=== PATIENT | male | born 1995 | race African-American/Black ===

== ENCOUNTER 2017-03-17 19:53 | Emergency (ER) | payer MEDICAID ==
[~2017-03-17] VITALS: Ht 193 cm; Wt 63.0 kg
[2017-03-17] MEDS ORDERED: LIDOCAINE 1%, 20ML SQ ONE (20:00)
[2017-03-17] MEDS ORDERED: DIPH,PERTUSS(ACELL),TET VAC/PF 0.5 ML IM-VACC ONE ×2 (20:00→20:30)
[2017-03-17] MEDS ORDERED: PLEASE ENTER HEIGHT AND WEIGHT MC SCH (20:30)
[2017-03-17] MEDS ORDERED: LIDOCAINE 1%, 20ML ONE (20:30)
[2017-03-17] MEDS ORDERED: BACITRACIN ZINC OINT 500U/GM, 0.9 GM ONE (20:40)
[2017-03-17 21:46] VITALS: BP 155/91
== END 2017-03-17 21:48 | disposition home or self-care (01) ==
LOC: ED 21:39
DX: S01.412A Laceration without foreign body of left cheek and temporomandibular area, initial encounter (principal); S02.32XA Fracture of orbital floor, left side, initial encounter for closed fracture; S02.31XA Fracture of orbital floor, right side, initial encounter for closed fracture; S02.19XA Other fracture of base of skull, initial encounter for closed fracture; S09.90XA Unspecified injury of head, initial encounter; Z23 Encounter for immunization; W18.39XA Other fall on same level, initial encounter; Y93.89 Activity, other specified; Y99.8 Other external cause status; Y92.89 Other specified places as the place of occurrence of the external cause; Y93.51 Activity, roller skating (inline) and skateboarding
CPT/HCPCS: 12011; 70450; 70486; 72125; 90471; 90715

== ENCOUNTER 2017-03-25 16:27 | Emergency (ER) | payer MEDICAID ==
[~2017-03-25] VITALS: Ht 190.5 cm; Wt 67.9 kg
[2017-03-25 16:38] VITALS: BP 128/80
== END 2017-03-25 17:04 | disposition home or self-care (01) ==
LOC: ED 16:45
DX: S01.81XD Laceration without foreign body of other part of head, subsequent encounter (principal)
CPT/HCPCS: 99281

== ENCOUNTER 2017-04-10 19:39 | Inpatient (IN) | payer MEDICAID ==
[~2017-04-10] VITALS: Ht 190.5 cm; Wt 70.1 kg
[2017-04-10] MEDS ORDERED: SODIUM CHLORIDE 0.9% 1,000ML IVBOLUS ONE ×2 (20:30→22:00)
[2017-04-10] MEDS ORDERED: SODIUM CHLORIDE FLUSH 10ML SYR IVF ONE (20:30)
[2017-04-10] MEDS ORDERED: AMPICILLIN/SULBACTAM 3 GM in SODIUM CHLORIDE 0.9% 100 ML IVPB ONE (20:30)
[2017-04-10 20:59] LABS: BLOOD UREA NITROGEN 14 mg/dL (7-18)
[2017-04-10] MEDS ORDERED: KETOROLAC 30 MG/1 ML ONE (21:55)
[2017-04-10] MEDS ORDERED: KETOROLAC 30 MG/1 ML IVPush ONE (22:00)
[2017-04-10] MEDS ORDERED: VANCOMYCIN PER PHARMACY MC PRN (23:00)
[2017-04-10] MEDS ORDERED: VANCOMYCIN 1,300 MG in SODIUM CHLORIDE 0.9% 250 ML IV ONE (23:30)
[2017-04-11 01:00] VITALS: BP 104/55
[2017-04-11] MEDS: ENOXAPARIN 40 MG/0.4 ML SQ SCH (01:30)
[2017-04-11] MEDS ORDERED: BISACODYL 10 MG SUPP PR PRN (01:30)
[2017-04-11] MEDS ORDERED: DOCUSATE 100 MG CAPSULE PO PRN (01:30)
[2017-04-11] MEDS ORDERED: POLYETHYLENE GLYCOL 17 GM PACKET PO PRN (01:30)
[2017-04-11] MEDS ORDERED: LABETALOL 5MG/ML, 20ML IVPush PRN (01:30)
[2017-04-11] MEDS: SODIUM CHLORIDE 0.9% 1,000 ML IV SCH ×4 (03:24→22:00)
[2017-04-11] MEDS: AMPICILLIN/SULBACTAM 3 GM in SODIUM CHLORIDE 0.9% 100 ML IV SCH ×4 (03:24→19:50)
[2017-04-11 06:31] VITALS: BP 123/68
[2017-04-11] MEDS: ACETAMINOPHEN 325 MG TABLET PO PRN ×3 (09:20→19:50)
[2017-04-11 14:29] VITALS: BP 120/61
[2017-04-11 19:39] VITALS: BP 121/73
[2017-04-12] MEDS: ENOXAPARIN 40 MG/0.4 ML SQ SCH (01:30)
[2017-04-12] MEDS: AMPICILLIN/SULBACTAM 3 GM in SODIUM CHLORIDE 0.9% 100 ML IV SCH ×4 (02:18→19:49)
[2017-04-12 02:47] VITALS: BP 114/69
[2017-04-12] MEDS ORDERED: CALCIUM CARBONATE 500 MG TAB.CHEW PO PRN (03:00)
[2017-04-12] MEDS: SODIUM CHLORIDE 0.9% 1,000 ML IV SCH ×2 (05:10→11:12)
[2017-04-12 07:40] LABS: BLOOD UREA NITROGEN 8 mg/dL (7-18)
[2017-04-12 08:34] VITALS: BP 130/74
[2017-04-12] MEDS ORDERED: VANCOMYCIN PER PHARMACY MC PRN (11:00)
[2017-04-12] MEDS ORDERED: PHARMACOKINETIC MONITORING MC PRN (11:30)
[2017-04-12] MEDS ORDERED: PHARMACOKINETIC CONSULTATION MC ONE (11:30)
[2017-04-12] MEDS: VANCOMYCIN 1,400 MG in SODIUM CHLORIDE 0.9% 250 ML IV SCH ×2 (11:49→23:24)
[2017-04-12] MEDS ORDERED: MORPHINE SULFATE 4 MG/ML, 1ML IVPush PRN (12:30)
[2017-04-12] MEDS ORDERED: HYDROcodone/APAP 5/325 TABLET PO PRN (12:30)
[2017-04-12 14:06] VITALS: BP 115/73
[2017-04-12 18:30] VITALS: BP 116/66
[2017-04-13 01:07] VITALS: BP 100/66
[2017-04-13] MEDS: ENOXAPARIN 40 MG/0.4 ML SQ SCH (01:30)
[2017-04-13] MEDS: AMPICILLIN/SULBACTAM 3 GM in SODIUM CHLORIDE 0.9% 100 ML IV SCH ×4 (02:05→20:25)
[2017-04-13] MEDS: SODIUM CHLORIDE 0.9% 1,000 ML IV SCH ×3 (02:06→23:59)
[2017-04-13 07:19] VITALS: BP 122/78
[2017-04-13] MEDS: VANCOMYCIN 1,400 MG in SODIUM CHLORIDE 0.9% 250 ML IV SCH ×2 (11:31→23:30)
[2017-04-13 15:10] VITALS: BP 101/64
[2017-04-13 18:50] VITALS: BP 114/80
[2017-04-14] MEDS: ENOXAPARIN 40 MG/0.4 ML SQ SCH (01:30)
[2017-04-14] MEDS: AMPICILLIN/SULBACTAM 3 GM in SODIUM CHLORIDE 0.9% 100 ML IV SCH ×4 (02:21→21:03)
[2017-04-14 03:23] VITALS: BP 111/61
[2017-04-14 08:30] VITALS: BP 121/77
[2017-04-14] MEDS: SULFAMETH./TRIMETHOPRIM DS 800MG/160MG TABLET PO SCH ×2 (10:43→21:03)
[2017-04-14] MEDS: SODIUM CHLORIDE 0.9% 1,000 ML IV SCH (10:44)
[2017-04-14 15:28] VITALS: BP 109/68
[2017-04-14 19:25] VITALS: BP 144/67
[2017-04-14] MEDS ORDERED: HYDROcodone/APAP 5/325 TABLET PO PRN (21:00)
[2017-04-14] MEDS ORDERED: BISACODYL 10 MG SUPP PR PRN (21:00)
[2017-04-15] MEDS: ENOXAPARIN 40 MG/0.4 ML SQ SCH (01:30)
[2017-04-15 02:03] VITALS: BP 121/61
[2017-04-15] MEDS: SODIUM CHLORIDE 0.9% 1,000 ML IV SCH (02:50)
[2017-04-15] MEDS: AMPICILLIN/SULBACTAM 3 GM in SODIUM CHLORIDE 0.9% 100 ML IV SCH ×2 (02:51→08:20)
[2017-04-15 05:56] LABS: DAU SCREEN DISCLAIMER
[2017-04-15] MEDS: SULFAMETH./TRIMETHOPRIM DS 800MG/160MG TABLET PO SCH (08:24)
[2017-04-15] MEDS ORDERED: AMOX1TAB12 PO (08:44)
[2017-04-15] MEDS ORDERED: ACID1TAB3 PO (08:44)
[2017-04-15] MEDS ORDERED: SULF1TAB3 PO (08:44)
[2017-04-15 08:59] VITALS: BP 141/74
[2017-04-15] MEDS ORDERED: AMOXICILLIN/CLAV 875-125MG TABLET PO SCH (10:00)
== END 2017-04-15 14:39 | disposition home or self-care (01) | DRG 872 ==
LOC: ED 22:45 → EDIP 22:51 → 3NE 04-11 00:15
PROVIDERS: ADMIT Internal Medicine; ATTEND Internal Medicine
DX: A41.9 Sepsis, unspecified organism (principal); E87.1 Hypo-osmolality and hyponatremia; L03.113 Cellulitis of right upper limb; F12.90 Cannabis use, unspecified, uncomplicated; K02.9 Dental caries, unspecified; E86.1 Hypovolemia; R59.0 Localized enlarged lymph nodes; Z72.89 Other problems related to lifestyle; Z71.41 Alcohol abuse counseling and surveillance of alcoholic; Z71.51 Drug abuse counseling and surveillance of drug abuser
CPT/HCPCS: 36415; 80048; 80307; 82040; 83605; 85025; 85651; 86140; 87040; 96365; 96375; J0295; J1885; J3370; J7030; J7050

== ENCOUNTER 2017-06-17 03:44 | Emergency (ER) | payer MEDICAID ==
[~2017-06-17] VITALS: Ht 190.5 cm; Wt 65.0 kg
[~2017-06-17 03:44] MED LIST: ACID1TAB3 PO; AMOX1TAB12 PO; SULF1TAB3 PO
[2017-06-17 04:36] LABS: HEMATOCRIT 39.7 % (39.2-51.8); HEMOGLOBIN 13.5 g/dL (13.7-18.0); WHITE BLOOD COUNT 11.1 x10^3/uL (3.4-10)
[2017-06-17 04:48] LABS: ASPARTATE AMINO TRANSFERASE 35 U/L (15-37); BLOOD UREA NITROGEN 15 mg/dL (7-18)
[2017-06-17 04:49] LABS: ACETAMINOPHEN < 2 mcg/mL (10-30)
[2017-06-17 06:25] VITALS: BP 112/61
== END 2017-06-17 07:04 | disposition designated cancer center or children's hospital (05) ==
LOC: ED 04:36
DX: S02.119A Unspecified fracture of occiput, initial encounter for closed fracture (principal); S10.93XA Contusion of unspecified part of neck, initial encounter; S00.03XA Contusion of scalp, initial encounter; S00.431A Contusion of right ear, initial encounter; W10.9XXA Fall (on) (from) unspecified stairs and steps, initial encounter; F15.10 Other stimulant abuse, uncomplicated; Y93.89 Activity, other specified; Y92.89 Other specified places as the place of occurrence of the external cause; Y99.8 Other external cause status
CPT/HCPCS: 36415; 70450; 71020; 72125; 80053; 80307; 80329; 85025; 99285; G0480

== ENCOUNTER 2018-06-18 20:14 | Emergency (ER) | payer MEDICAID ==
[~2018-06-18] VITALS: Ht 193 cm; Wt 66.9 kg
[~2018-06-18 20:14] MED LIST changes: +SULF-169 PO; -SULF1TAB3 PO
[2018-06-18 20:18] VITALS: BP 137/85
[2018-06-18 20:54] LABS: ALBUMIN 3.7 g/dL (3.4-5.0); ANION GAP 6 mmol/L (5-15); CALCIUM 8.4 mg/dL (8.5-10.1); CHLORIDE 106 mmol/L (98-107); CREATININE 0.92 mg/dL (0.7-1.3)
[2018-06-18 20:55] LABS: BASOPHILS # (AUTO) 0.02 x10^3/uL (0-0.1); BASOPHILS % (AUTO) 0 % (0-1); EOSINOPHILS # (AUTO) 0.04 x10^3/uL (0-0.4); EOSINOPHILS % (AUTO) 1 % (1-7); LYMPHOCYTES # (AUTO) 1.08 x10^3/uL (1-3.4); LYMPHOCYTES % (AUTO) 21 % (22-44); MD NO; MEAN CORPUSCULAR HEMOGLOBIN 33.6 pg (27.5-34.5); MEAN CORPUSCULAR HGB CONC 34.4 g/dL (33.2-36.2); MEAN CORPUSCULAR VOLUME 97.6 fL (81-97); MEAN PLATELET VOLUME 9.7 fL (7.4-10.4); MONOCYTES # (AUTO) 0.38 x10^3/uL (0.2-0.8); MONOCYTES % (AUTO) 7 % (2-9); NEUTROPHILS # (AUTO) 3.61 x10^3/uL (1.8-6.8); NEUTROPHILS % (AUTO) 70 % (42-75); PLATELET COUNT 168 x10^3/uL (130-400); RED BLOOD COUNT 4.31 x10^6/uL (4.38-5.82); RED CELL DISTRIBUTION WIDTH 13.8 % (9.4-14.8)
== END 2018-06-18 22:00 | disposition home or self-care (01) ==
LOC: ED 21:30
DX: G44.321 Chronic post-traumatic headache, intractable (principal); F17.200 Nicotine dependence, unspecified, uncomplicated
CPT/HCPCS: 36415; 80048; 82040; 85025; 99284